=== PATIENT | female | born 1935 | race Caucasian/White ===

== ENCOUNTER → 2016-09-10 | Outpatient (CLI) | payer OTHER | LOC: FIMAGING 08:28 | PROVIDERS: ATTEND Family Medicine | DX: Z12.31 Encounter for screening mammogram for malignant neoplasm of breast (principal); Z85.44 Personal history of malignant neoplasm of other female genital organs | CPT/HCPCS: G0202 ==

== ENCOUNTER → 2017-08-13 | Outpatient (CLI) | payer OTHER | LOC: FIMAGING 08:26 | PROVIDERS: ATTEND Surgery | DX: K44.9 Diaphragmatic hernia without obstruction or gangrene (principal); K22.2 Esophageal obstruction ==

== ENCOUNTER → 2017-09-24 | Outpatient (CLI) | payer OTHER | LOC: FIMAGING 10:50 | PROVIDERS: ATTEND Surgery | DX: Z12.31 Encounter for screening mammogram for malignant neoplasm of breast (principal); Z85.3 Personal history of malignant neoplasm of breast ==

== ENCOUNTER 2017-10-04 06:05 | Day surgery (SDC) | payer OTHER ==
[2017-10-04] MEDS ORDERED: LR 1,000 ML IV ONE (06:20)
--- NOTE | 2017-10-04 07:20 | PDANEPAE ---
ANE Past Medical History - Cardiovascular History Hx Hypertension: Yes Hx Arrhythmias: Yes Hx Chest Pain: No Hx Coronary Artery / Peripheral Vascular Disease: No Hx CHF / Valvular Disease: No Hx Palpitations: No Cardiovascular History Comment: Patient with atrial fibrillation since initial surgery on 07-08-2017, no Afib currently - Pulmonary History Hx COPD: No Hx Asthma/Reactive Airway Disease: No Hx Recent Upper Respiratory Infection: No Hx Oxygen in Use at Home: No Hx Sleep Apnea: No Sleep Apnea Screening Result - Last Documented: Negative Pulmonary History Comment: Concerns for aspiration pneumonia in past week. Patient has been on antibiotics and supplemental O2. Patient did need brief ICU admission for this issue. - Neurologic History Hx Cerebrovascular Accident: No Hx Seizures: No Hx Dementia: No - Endocrine History Hx Diabetes: No Obesity: no - Renal History Hx Renal Disorders: No - Liver History Hx Hepatic Disorders: No - Neurological & Psychiatric Hx Hx Neurological and Psychiatric Disorders: No Neurological / Psychiatric History Comment: none - Cancer History Hx Cancer: Yes Cancer History Comment: breast cancer (paget's disease) - Congenital Disorder History Hx Congenital Disorders: No - GI History Hx Gastrointestinal Disorders: Yes Gastrointestinal History Comment: Hiatal hernia - Other Health History Other Health History: wax in ears. ring worm on ankle. partial on bottom,full plate on top - Chronic Pain History Chronic Pain: No - Surgical History Prior Surgeries: abdominal sx for volvulus ANE Review of Systems Review of Systems: - Exercise capacity METS (RN): 4 METS ANE Patient History - Allergies Allergies/Adverse Reactions: Sulfa (Sulfonamide Antibiotics) [Sulfa(Sulfonamide Antibiotics)] Allergy ( Verified 10/04/17 06:35) Hives - Home Medications Home Medications: C/E/Zn/Cu/OM3/DHA/EPA/LUT/ZEAX [Preservision Areds 2 Softgel] 07/08/17 [Last Taken 1 Week Ago ~09/27/17] Carboxymethylcellulose 1% [Refresh Celluvisc (*)] 07/08/17 [Last Taken Unknown] Levothyroxine [Synthroid 100 mcg (*)] 07/08/17 [Last Taken 10/03/17] Lisinopril [Zestril 10 mg (*)] 07/08/17 [Last Taken 10/03/17] Arnica [place] Tab 07/13/17 [Last Taken Unknown] Acyclovir [Zovirax 400 mg (*)] 09/28/17 [Last Taken 1 Week Ago ~09/27/17] Aspirin [Aspirin 81mg (*)] 09/28/17 [Last Taken 1 Week Ago ~09/27/17] Diltiazem Cd [Cardizem ER 120 MG (*)] 09/28/17 [Last Taken 10/03/17] Melatonin [Melatonin 3 MG (*)] 09/28/17 [Last Taken 10/03/17] - NPO status NPO Status: no food or drink >8 hours NPO Since - Liquids (Date): 10/04/17 NPO Since - Liquids (Time): 00:00 NPO Since - Solids (Date): 10/04/17 NPO Since - Solids (Time): 00:00 - Anes Hx Anes Hx: no prior problems - Smoking Hx Smoking Status: Never smoked - Family Anes Hx Family Hx Anesthesia Complications: none ANE Labs/Vital Signs - Vital Signs Blood Pressure: 120/78 Heart Rate: 82 Respiratory Rate: 18 O2 Sat (%): 95 Height: 165.1 cm Weight: 61.689 kg ANE Physical Exam - Airway Neck exam: FROM Mallampati Score: Class 2 Mouth exam: dentures - Pulmonary Pulmonary: no respiratory distress, no rales or rhonchi, clear to auscultation - Cardiovascular Cardiovascular: regular rate and rhythym, no murmur, rub, or gallop - ASA Status ASA Status: II ANE Anesthesia Plan Anesthesia Plan: GA with mask
--- NOTE | 2017-10-04 07:24 | PDHPUP ---
History & Physical Update H&P update statement: This history and physical update is based on an assessment of the patient which was completed after admission or registration (within 24 hours), but prior to the surgery/procedure. H&P update: H&P reviewed & patient examined, no change in patient's condition since H&P completed
--- NOTE | 2017-10-04 07:26 | POSTOPPROG ---
Post Op Note Date of Operation: 10/04/17 Surgeon: Morgan Crowder Anesthesiologist: Jacobo Brennan Anesthesia: IV Sedation Pre-op Diagnosis: Dysphagia Post-op Diagnosis: Dysphagia, gastroparesis Procedure: EGD with biopsies Findings: extensive retained old food. difuse gastritis. patulous esophagus. Inf/Abcess present in the surg proc area at time of surgery?: No EBL: Minimal Complications: no immediate
[2017-10-04] MEDS ORDERED: PROPOFOL 200 MG/20 ML VIAL ONE ×2 (07:30→07:53)
[2017-10-04] MEDS ORDERED: fentaNYL 100 MCG/2 ML INJ IVP PRN (07:50)
[2017-10-04] MEDS ORDERED: ENALAPRILAT DIHYDRATE 1.25 MG/ML VIAL IVP PRN (07:50)
[2017-10-04] MEDS ORDERED: LR 500 ML IV PRN (07:50)
[2017-10-04] MEDS ORDERED: NALOXONE HCL 0.4 MG/ML INJ IVP PRN (07:50)
[2017-10-04] MEDS ORDERED: PROMETHAZINE HCL 25 MG/ML INJ IVP PRN (07:50)
[2017-10-04] MEDS ORDERED: ONDANSETRON 4 MG/2 ML VIAL IVP PRN (07:50)
--- NOTE | 2017-10-04 08:40 | POSTANESTH ---
Post Anesthetic Evaluation Cardiovascular Status: Normal, Stable, Similar to Pre-Op Cond Respiratory Status: Normal, Stable, Similar to Pre-op Cond. Level of Consciousness/Mental Status: Can Participate in Eval, Mildly Sleepy, Arousable Pain Control: Adequate, Prn Tx Ordered Nausea/Vomiting Control: Adequate, Prn Tx Ordered Complications Possibly Related to Anesthesia: None Noted
--- NOTE | 2017-10-04 09:16 | GOP ---
[f rep st] OPERATIVE REPORT DATE OF OPERATION: 10/04/2017 SURGEON: Morgan Crowder MD ANESTHESIA: MAC. ANESTHESIOLOGIST: Thoams Brennan MD. PREOPERATIVE DIAGNOSIS: Dysphagia. POSTOPERATIVE DIAGNOSIS: Dysphagia, gastroparesis. PROCEDURE PERFORMED: Upper endoscopy with biopsy. FINDINGS: INDICATIONS: 82-year-old female status post a massive incarcerated hernia, paraesophageal hernia red uction. She continues to have persistent dysphagia. Prior Gastrografin upper GI shows areas of diff use thickening around the GE junction as well as possible stricturing. She is undergoing upper endos copy with possible dilation and biopsy as indicated. Risks and benefits were explained of bleeding, infection, alternate findings, perforation, as well as others. All questions were answered. She corrina ires to proceed. DESCRIPTION OF PROCEDURE: After monitored anesthesia was started the upper endoscope was passed via the oropharynx down to the 2nd portion of the duodenum. The esophagus was markedly patulous with lesly e areas of retained food just at the level of the GE junction upon initial scope placement. Upon ent ering the stomach, there was massive quantities of old undigested vegetable matter completely encasin g the stomach. Extensive time was spent irrigating out the old material to allow eventual partial in spection of the stomach. The scope was able to be traversed through the showing a dilated duodenum with areas of mild duodenitis. The scope was withdrawn into the pylorus, which was diffuse ly irrigated showing mild areas of antritis. No mass lesions were identified at this location. Biop sies were obtained for HEIDI. The scope was retroflexed. The fundus was never able to be definitively visualized given the large quantities of food impaction at this location despite extensive irrigatio n. The portions of the fundus and body showed diffuse erythema without ulceration or mass lesions fo r the visualized portions. The GE junction was noted to be approximately at 35 cm. The Z-line appea red mildly erythematous, but without mass lesion or areas of friability, so opted to abort further ef forts at gastric irrigation or dilate given the nicely patent gastroesophageal junction which allowed for easy scope passage. The scope was withdrawn uneventfully. Plan will be to proceed with prokine tic agents and acid apprentice lineman third step trial while pending a HEIDI assessment. Additional endoscopy will need to be completed with a clear liquid trial for multiple days prior. /[id number]/MODL
[2017-10-04 09:21] VITALS: BP 136/77
== END 2017-10-04 10:14 | disposition home or self-care (01) ==
LOC: FSGY 06:05
PROVIDERS: ATTEND Surgery
DX: R13.10 Dysphagia, unspecified (principal); K31.84 Gastroparesis; K29.80 Duodenitis without bleeding; K44.0 Diaphragmatic hernia with obstruction, without gangrene; I10 Essential (primary) hypertension; I48.91 Unspecified atrial fibrillation; Z85.3 Personal history of malignant neoplasm of breast
CPT/HCPCS: J2704

== ENCOUNTER → 2018-09-28 | Outpatient (CLI) | payer OTHER | LOC: FIMAGING 10:04 ==